=== PATIENT | female | born 2000 | race Caucasian/White ===

== ENCOUNTER 2020-08-03 23:27 | Emergency (ER) | payer OTHER ==
[~2020-08-03 23:27] MED LIST: AMITRIPTYLINE H10 MG PO; AUGMENTIN 875-1 EACH PO; BACTROBAN OINT22 GM EXT; COLACE 100MG C100 MG PO; ELAVIL 10 MG TA10 MG PO; FOLIC ACID 1 MG1 MG PO; IBUPROFEN600 MG PO; KEPPRA1000 MG PO; LORTAB 5-325 M1 EACH PO; PRENATAL TABLE1 EAC1 PO; VITAMIN D-40400 UNIT PO; ZITHROMAX250 MG PO; ZOFRAN4 MG PO
[2020-08-04] MEDS ORDERED: VRAYLAR3 MG PO (00:19)
== END 2020-08-04 00:28 | disposition home or self-care (01) ==
LOC: ER1 23:27
DX: F31.9 Bipolar disorder, unspecified (principal)
CPT/HCPCS: 99283

== ENCOUNTER 2020-09-11 21:29 | Emergency (ER) | payer OTHER ==
[~2020-09-11 21:29] MED LIST changes: +VRAYLAR3 MG PO
[2020-09-11 22:26] LABS: HEMOGLOBIN 14.3 gm/dl (12.3-15.3); RED BLOOD COUNT 4.63 M/UL (4.00-5.10); WHITE BLOOD COUNT 7.9 K/UL (4.5-11.0)
[2020-09-11 22:44] LABS: BUN/CREATININE RATIO 20 (0-10)
[2020-09-11] MEDS ORDERED: [UNRECOGNIZED DRUG - REMARK] (23:17)
== END 2020-09-11 23:34 | disposition home or self-care (01) ==
LOC: ER1 21:29
PROVIDERS: Family Medicine
DX: R07.9 Chest pain, unspecified (principal); N63.22 Unspecified lump in the left breast, upper inner quadrant
CPT/HCPCS: 36415; 71046; 80053; 82550; 82553; 83874; 84484; 85025; 85379; 93005; 99285

== ENCOUNTER → 2020-09-25 | Outpatient (CLI) | payer OTHER ==
[~2020-09-25] MED LIST changes: +[UNRECOGNIZED DRUG - REMARK]
== END ==
LOC: US 14:05
DX: N63.20 Unspecified lump in the left breast, unspecified quadrant (principal)
CPT/HCPCS: 76641-LT